=== PATIENT | male | born 1995 | race Caucasian/White ===

== ENCOUNTER 2019-09-25 22:39 | Emergency (ER) | payer SELFPAY ==
[~2019-09-25] VITALS: Ht 175.3 cm; Wt 72.1 kg
[2019-09-25 22:46] VITALS: BP 130/72
--- NOTE | 2019-09-25 22:56 | NUR ---
PT AMBULATED TO CHAIR C
--- NOTE | 2019-09-25 22:59 | NUR ---
Dr. Hall examining patient.
[2019-09-25] MEDS ORDERED: HYDROcodone/APAP 5/325 MG 1 TAB TAB PO STA (23:02)
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
--- NOTE | 2019-09-25 23:20 | NUR ---
ANGELA EMT, CLEANING LACERATIONS AND WOUNDS AT BEDSIDE
--- NOTE | 2019-09-25 23:49 | NUR ---
PT TAKEN TO CT
--- NOTE | 2019-09-26 00:05 | NUR ---
PT RETURN FROM CT
--- NOTE | 2019-09-26 00:21 | NUR ---
ASSISTED DOCTOR WITH DERMABOND PROCEDURE
--- NOTE | 2019-09-26 00:31 | NUR ---
Hema sifuentes in ED - 09/26/19 at 0039 by MILLER Patient discharged with v/s stable. Written and verbal after care instructions given and explained. Patient verbalized understanding. Ambulatory with steady gait. All questions addressed prior to discharge. Advised to follow up with PMD.
[2019-09-26 00:32] VITALS: BP 130/72
--- NOTE | 2019-09-26 00:32 | NUR ---
PT LEFT BEFORE HE COULD SIGN D/C PAPER WORK , SO PT LEFT WITHOUT DC PAPERWORK
== END 2019-09-26 00:32 | disposition home or self-care (01) ==
LOC: MED 22:39
DX: S61.511A Laceration without foreign body of right wrist, initial encounter (principal); V49.60XA Unspecified car occupant injured in collision with unspecified motor vehicles in traffic accident, initial encounter; Y93.89 Activity, other specified; Y92.89 Other specified places as the place of occurrence of the external cause; Y99.8 Other external cause status
CPT/HCPCS: 70450; 72125; 90471; 90715; 99285